=== PATIENT | male | born 1975 | race American Indian/Alaskan Native ===

== ENCOUNTER 2017-01-07 06:15 | Emergency (ER) | payer MEDICAID ==
[2017-01-07 07:37] LABS: Urine Drugs of Abuse Note Disclamer
[2017-01-07 08:09] LABS: Basophils % (Auto) 0.9 % (0.0-1.8); Eosinophils % (Auto) 0.5 % (0.0-4.3); Hematocrit 43.2 % (35.5-45.6); Hemoglobin 15.2 gm/dl (11.8-15.2); Mean Corpuscular HGB Conc 35 % (32-34); Mean Corpuscular Hemoglobin 32 pg (28-32); Mean Corpuscular Volume 92 fl (84-94); Platelet Count 263 K/mm3 (140-440); Red Cell Distribution Width 13.4 % (13.2-15.2); White Blood Count 9.4 K/mm3 (4.5-11.0)
[2017-01-07 08:21] LABS: Anion Gap 23 mmol/L; Blood Urea Nitrogen 14 mg/dL (9-20); Calcium 9.6 mg/dL (8.4-10.2); Carbon Dioxide 22 mmol/L (22-30); Chloride 98.6 mmol/L (98-107); Glucose 73 mg/dL (75-100); Potassium 3.9 mmol/L (3.6-5.0); Sodium 140 mmol/L (137-145)
[2017-01-07 08:23] LABS: Bilirubin,Urine NEG (Negative); Blood,Urine NEG (Negative); Ketones,Urine 20 mg/dL (Negative); Leukocyte Esterase,Urine NEG (Negative); Mucus,Urine 1+ /HPF; Nitrite,Urine NEG (Negative); Sperm,Urine FEW /HPF (NP)
--- NOTE | 2017-01-07 12:19 | Emergency Department Report ---
ED Psych HPI - General Chief Complaint: Psych Stated Complaint: MEDICAL CLEARANCE Time Seen by Provider: 01/07/17 11:08 Source: patient Mode of arrival: Ambulatory Limitations: No Limitations - History of Present Illness Initial Comments: 41 yo male with a past medical history of schizophrenia and hypertension presents to the hospital with homicidal suicidal ideation after possible HIV exposure. Patient was just released from [facility] [facility] ago. Patient states he lied stating that he was no longer suicidal or homicidal in order to get out of the program. Patient has been noncompliant with his medications since discharge because it makes him feel too sleepy and makes him constipated. Patient is taking Vistaril but he complains it makes him feel groggy. Yesterday patient ran into a man he had met previously and attempted to collect a $10 debt. This man offered sexual favors as re-payment for an additional payment. The patient and this man had unprotected oral and anal sex (receptive and penatrator) as well as sharing a needle for cocaine injection. Patient states he has not used cocaine at least 6 years and only did it because the man told him it will make sex better. The patient no longer prior to spend time in this male and kicked him out. They exchanged words and the man then told the patient that he has HIV. The patient also recalls that this man's girlfriend is a prostitute who is well-nourished to have HIV as well. Patient states she was angry, he knows he has poor corpus skills, he is having thoughts of homicidal ideation and self-harm. Previous episodes of suicidal attempts at self-harm in the past. Positive chronic auditory hallucinations. No physical complaints or pain reported. Patient has not been tested for HIV in greater than 1 year. - Related Data Home Medications Medication Instructions Recorded Confirmed Last Taken Aspirin 81 mg PO DAILY 01/07/17 01/07/17 Unknown Clonidine 0.2 mg PO BID 01/07/17 01/07/17 Unknown Flomax 0.2 mg PO BID 01/07/17 01/07/17 Unknown HCTZ 25 mg PO DAILY 01/07/17 01/07/17 Unknown Vistaril mg PO DAILY 01/07/17 Unknown Previous Rx's Medication Instructions Recorded Last Taken Type ZyPREXA 5 mg PO BID #60 01/09/17 Unknown Rx traZODone [Desyrel] 50 mg PO HS #30 tablet 01/09/17 Unknown Rx Allergies Allergy/AdvReac Type Severity Reaction Status Date / Time Penicillins Allergy Hives Verified 01/07/17 07:10 ED Review of Systems ROS: Stated complaint: MEDICAL CLEARANCE Other details as noted in HPI Comment: All other systems reviewed and negative Other: Constitutional: No fevers chills Eyes: No eye pain visual changes ENT: No ear pain or throat pain Neck: Denies pain Respiratory: Denies cough wheezing shortness of breath Cardiovascular: Denies chest pain, palpitations, syncope GI: Denies abdominal pain, nausea, vomiting, diarrhea : Denies dysuria Musculoskeletal: Denies back pain Skin: Denies rash, lesions, erythema Neurologic: Denies headache, numbness, weakness Psychiatric: as per hpi ED Past Medical Hx - Past Medical History Hx Hypertension: Yes Hx Psychiatric Treatment: Yes (Schizophrenia, Homicidal Ideation, Suicical Ideatioins) - Surgical History Past Surgical History?: No - Social History Smoking Status: Current Every Day Smoker Substance Use Type: Cocaine, Marijuana - Medications Home Medications: Home Medications Medication Instructions Recorded Confirmed Last Taken Type Aspirin 81 mg PO DAILY 01/07/17 01/07/17 Unknown History Clonidine 0.2 mg PO BID 01/07/17 01/07/17 Unknown History Flomax 0.2 mg PO BID 01/07/17 01/07/17 Unknown History HCTZ 25 mg PO DAILY 01/07/17 01/07/17 Unknown History Vistaril mg PO DAILY 01/07/17 Unknown History ZyPREXA 5 mg PO BID #60 01/09/17 Unknown Rx traZODone [Desyrel] 50 mg PO HS #30 tablet 01/09/17 Unknown Rx ED Physical Exam - General Limitations: No Limitations - Other Other exam information: General: No limitations, patient is alert in no acute distress Head exam: Atraumatic, normocephalic Eyes exam: Normal appearance ENT: Moist mucous membrane, normal oropharynx Neck exam: Normal inspection, full range of motion Respiratory exam: Clear to auscultation bilateral, no wheezes, rales, crackles Cardiovascular: Normal rate and rhythm, normal heart sounds Abdomen: Soft, nondistended, and nontender, with normal bowel sounds, no rebound, or guarding Extremity: Full range of motion normal inspection no deformity Back: Normal Inspection, full range of motion, no tenderness Neurologic: Alert, oriented x3, cranial nerves intact, no motor or sensory deficit Psychiatric: tearful at times, cooperative Skin: Old healed scars to the left forearm and abdomen from self-inflicted lacerations ED Course Vital Signs 01/07/17 01/07/17 01/07/17 06:48 11:31 19:59 Temperature 99 F 99.6 F 98 F Pulse Rate 87 112 H 82 Respiratory 18 18 18 Rate Blood Pressure 129/92 Blood Pressure 129/92 133/77 111/67 [Left] O2 Sat by Pulse 99 100 98 Oximetry 01/08/17 01/08/17 01/08/17 02:59 10:00 17:56 Temperature 98 F 99.4 F Pulse Rate 87 84 Respiratory 18 18 16 Rate Blood Pressure Blood Pressure 129/88 136/81 [Left] O2 Sat by Pulse 97 97 Oximetry 01/09/17 01/09/17 01/09/17 03:00 09:56 09:58 Temperature 98.6 F 99.0 F Pulse Rate 98 H 88 Respiratory 98 H 20 20 Rate Blood Pressure Blood Pressure 146/98 126/72 [Left] O2 Sat by Pulse 98 Oximetry - Reevaluation(s) Reevaluation #1: 01/07/17 Pt consented for HIV for baseline testing Reevaluation #2: 01/11/17 01:41 1013 was rescinded after psych review. pt was sent home ED Medical Decision Making - Lab Data Result diagrams: 01/07/17 07:34 01/07/17 07:34 Lab Results 01/07/17 01/07/17 01/07/17 Range/Units 07:24 07:24 07:34 WBC (4.5-11.0) K/mm3 RBC (3.65-5.03) M/mm3 Hgb (11.8-15.2) gm/dl Hct (35.5-45.6) % MCV (84-94) fl MCH (28-32) pg MCHC (32-34) % RDW (13.2-15.2) % Plt Count (140-440) K/mm3 Lymph % (Auto) (13.4-35.0) % [place] % (Auto) (0.0-7.3) % Eos % (Auto) (0.0-4.3) % Baso % (Auto) (0.0-1.8) % Lymph # (1.2-5.4) K/mm3 [place] # (0.0-0.8) K/mm3 Eos # (0.0-0.4) K/mm3 Baso # (0.0-0.1) K/mm3 Seg Neutrophils % (40.0-70.0) % Seg Neutrophils # (1.8-7.7) K/mm3 Sodium 140 (137-145) mmol/L Potassium 3.9 (3.6-5.0) mmol/L Chloride 98.6 (98-107) mmol/L Carbon Dioxide 22 (22-30) mmol/L Anion Gap 23 mmol/L BUN 14 (9-20) mg/dL Creatinine 0.7 L (0.8-1.5) mg/dL Estimated GFR > 60 ml/min BUN/Creatinine Ratio 20.00 % Glucose 73 L (75-100) mg/dL Calcium 9.6 (8.4-10.2) mg/dL Total Creatine Kinase (55-170) units/L Urine Color [place] (Yellow) Urine Turbidity Clear (Clear) Urine pH 5.0 (5.0-7.0) Ur Specific [place] 1.033 H (1.003-1.030) Urine Protein 100 mg/dl (Negative) mg/dL Urine Glucose (UA) Neg (Negative) mg/dL Urine Ketones 20 (Negative) mg/dL Urine Blood Neg (Negative) Urine Nitrite Neg (Negative) Urine Bilirubin Neg (Negative) Urine Urobilinogen 2.0 (<2.0) mg/dL Ur Leukocyte Esterase Neg (Negative) Urine WBC (Auto) 1.0 (0.0-6.0) /HPF Urine RBC (Auto) 1.0 (0.0-6.0) /HPF U Epithel Cells (Auto) < 1.0 (0-13.0) /HPF Urine Mucus 1+ /HPF Urine Sperm Few (RACE STARTER) /HPF Urine Opiates Screen Presumptive negative Urine Methadone Screen Presumptive negative Ur Barbiturates Screen Presumptive negative Ur Phencyclidine Scrn Presumptive negative Ur Amphetamines Screen Presumptive negative U Benzodiazepines Scrn Presumptive negative Urine Cocaine Screen Presumptive positive U Marijuana (THC) Screen Presumptive negative Drugs of Abuse Note Disclamer Plasma/Serum Alcohol (0-0.07) gm% HIV 1&2 Antibody Rapid (Non React) HIV P24 Antigen (Non React) 01/07/17 01/07/17 01/07/17 Range/Units 07:34 07:34 07:43 WBC 9.4 (4.5-11.0) K/mm3 RBC 4.70 (3.65-5.03) M/mm3 Hgb 15.2 (11.8-15.2) gm/dl Hct 43.2 (35.5-45.6) % MCV 92 (84-94) fl MCH 32 (28-32) pg MCHC 35 H (32-34) % RDW 13.4 (13.2-15.2) % Plt Count 263 (140-440) K/mm3 Lymph % (Auto) 14.2 (13.4-35.0) % [place] % (Auto) 9.8 H (0.0-7.3) % Eos % (Auto) 0.5 (0.0-4.3) % Baso % (Auto) 0.9 (0.0-1.8) % Lymph # 1.3 (1.2-5.4) K/mm3 [place] # 0.9 H (0.0-0.8) K/mm3 Eos # 0.0 (0.0-0.4) K/mm3 Baso # 0.1 (0.0-0.1) K/mm3 Seg Neutrophils % 74.6 H (40.0-70.0) % Seg Neutrophils # 7.0 (1.8-7.7) K/mm3 Sodium (137-145) mmol/L Potassium (3.6-5.0) mmol/L Chloride (98-107) mmol/L Carbon Dioxide (22-30) mmol/L Anion Gap mmol/L BUN (9-20) mg/dL Creatinine (0.8-1.5) mg/dL Estimated GFR ml/min BUN/Creatinine Ratio % Glucose (75-100) mg/dL Calcium (8.4-10.2) mg/dL Total Creatine Kinase (55-170) units/L Urine Color (Yellow) Urine Turbidity (Clear) Urine pH (5.0-7.0) Ur Specific [place] (1.003-1.030) Urine Protein (Negative) mg/dL Urine Glucose (UA) (Negative) mg/dL Urine Ketones (Negative) mg/dL Urine Blood (Negative) Urine Nitrite (Negative) Urine Bilirubin (Negative) Urine Urobilinogen (<2.0) mg/dL Ur Leukocyte Esterase (Negative) Urine WBC (Auto) (0.0-6.0) /HPF Urine RBC (Auto) (0.0-6.0) /HPF U Epithel Cells (Auto) (0-13.0) /HPF Urine Mucus /HPF Urine Sperm (RACE STARTER) /HPF Urine Opiates Screen Urine Methadone Screen Ur Barbiturates Screen Ur Phencyclidine Scrn Ur Amphetamines Screen U Benzodiazepines Scrn Urine Cocaine Screen U Marijuana (THC) Screen Drugs of Abuse Note Plasma/Serum Alcohol < 0.01 (0-0.07) gm% HIV 1&2 Antibody Rapid Non react (Non React) HIV P24 Antigen Non react (Non React) 01/07/17 Range/Units 11:34 WBC (4.5-11.0) K/mm3 RBC (3.65-5.03) M/mm3 Hgb (11.8-15.2) gm/dl Hct (35.5-45.6) % MCV (84-94) fl MCH (28-32) pg MCHC (32-34) % RDW (13.2-15.2) % Plt Count (140-440) K/mm3 Lymph % (Auto) (13.4-35.0) % [place] % (Auto) (0.0-7.3) % Eos % (Auto) (0.0-4.3) % Baso % (Auto) (0.0-1.8) % Lymph # (1.2-5.4) K/mm3 [place] # (0.0-0.8) K/mm3 Eos # (0.0-0.4) K/mm3 Baso # (0.0-0.1) K/mm3 Seg Neutrophils % (40.0-70.0) % Seg Neutrophils # (1.8-7.7) K/mm3 Sodium (137-145) mmol/L Potassium (3.6-5.0) mmol/L Chloride (98-107) mmol/L Carbon Dioxide (22-30) mmol/L Anion Gap mmol/L BUN (9-20) mg/dL Creatinine (0.8-1.5) mg/dL Estimated GFR ml/min BUN/Creatinine Ratio % Glucose (75-100) mg/dL Calcium (8.4-10.2) mg/dL Total Creatine Kinase 698 H (55-170) units/L Urine Color (Yellow) Urine Turbidity (Clear) Urine pH (5.0-7.0) Ur Specific [place] (1.003-1.030) Urine Protein (Negative) mg/dL Urine Glucose (UA) (Negative) mg/dL Urine Ketones (Negative) mg/dL Urine Blood (Negative) Urine Nitrite (Negative) Urine Bilirubin (Negative) Urine Urobilinogen (<2.0) mg/dL Ur Leukocyte Esterase (Negative) Urine WBC (Auto) (0.0-6.0) /HPF Urine RBC (Auto) (0.0-6.0) /HPF U Epithel Cells (Auto) (0-13.0) /HPF Urine Mucus /HPF Urine Sperm (RACE STARTER) /HPF Urine Opiates Screen Urine Methadone Screen Ur Barbiturates Screen Ur Phencyclidine Scrn Ur Amphetamines Screen U Benzodiazepines Scrn Urine Cocaine Screen U Marijuana (THC) Screen Drugs of Abuse Note Plasma/Serum Alcohol (0-0.07) gm% HIV 1&2 Antibody Rapid (Non React) HIV P24 Antigen (Non React) - Medical Decision Making patient is HIV test is negative. Patient initiated on post exposure prophylaxis given high risk of HIV transmission given recent high risk activities. 1013 and Transfer forms signed. Patient is medically cleared for psychiatric admission. Awaiting psych consult for recommendations regarding psych medications. - Differential Diagnosis suicidal, homicidal, depression, schizophrenia, substance abuse Critical Care Time: No Critical care attestation.: If time is entered above; I have spent that time in minutes in the direct care of this critically ill patient, excluding procedure time. ED Disposition Clinical Impression: Schizophrenia, HIV exposure, Homicidal ideation, Suicidal ideation, Medical clearance for psychiatric admission, Cocaine abuse Disposition: [id number]/[id number] PSY HOSP/PSY UNIT Is pt being admited?: No Does the pt Need Aspirin: No Condition: Stable Instructions: Schizophrenia (ED), Suicide Prevention for Adults (ED) Additional Instructions: Follow-up as per mental health provider. Prescriptions: traZODone [Desyrel] 50 mg PO HS #30 tablet ZyPREXA 5 mg PO BID #60 Referrals: PRIMARY CARE, [Primary Care Provider] - 3-5 Days
[2017-01-07] MEDS ORDERED: ATIVAN PO ONE (12:20)
[2017-01-07 12:50] LABS: HIV-1 Antigen p24 Non React (Non React); HIVR-1/2 Ab Non React (Non React)
[2017-01-07] MEDS ORDERED: ATIVAN ONE (15:02)
[2017-01-07] MEDS: ISENTRESS PO SCH (23:42)
[2017-01-08] MEDS ORDERED: EMTRIVA 200 MG, VIREAD 300 MG PO SCH (10:00)
[2017-01-08] MEDS: EMTRIVA PO SCH (11:18)
[2017-01-08] MEDS: VIREAD PO SCH (11:18)
[2017-01-08] MEDS: ISENTRESS PO SCH ×2 (11:18→22:25)
[2017-01-08] MEDS ORDERED: CATAPRES PO SCH (22:00)
[2017-01-09 09:58] VITALS: BP 126/72
[2017-01-09] MEDS: EMTRIVA PO SCH (12:57)
[2017-01-09] MEDS: VIREAD PO SCH (12:57)
[2017-01-09] MEDS: ISENTRESS PO SCH (12:57)
--- NOTE | 2017-01-09 14:20 | Consultation ---
History of Present Illness - Reason for Consult Consult date: 01/09/17 Reason for consult: Mental Health Evaluation Requesting physician: RENUKA GAFFNEY - Chief Complaint Chief complaint: "I am okay" - History of Present Psychiatric Illness 41 yo male with a past medical history of bipolar and hypertension presents to the hospital with homicidal/suicidal ideation after possible HIV exposure. Today patient is calm and cooperative during the assessment. He stated that he was "pissed and stressed" when he found out a jeremy he had sex with may have exposed him to HIV. He stated that this jeremy owed him some money, so the jeremy decided to have sex with the patient to repay the debt. He stated that he used cocaine to "intensify his orgasm." Patient positive for cocaine. He stated that he haven't used cocaine in years. He stated that he was just "talking" if he made a statement about being suicidal/homicidal. He stated that he plan to move back to [place] to be with family once discharged. He denies SI/HI', AVH's, and depression. He denies a poor appetite and sleep disturbances. He denies excessive alcohol consumption (etoh) Medications and Allergies Allergies Allergy/AdvReac Type Severity Reaction Status Date / Time Penicillins Allergy Hives Verified 01/07/17 07:10 Home Medications Medication Instructions Recorded Confirmed Last Taken Type Aspirin 81 mg PO DAILY 01/07/17 01/07/17 Unknown History Clonidine 0.2 mg PO BID 01/07/17 01/07/17 Unknown History Flomax 0.2 mg PO BID 01/07/17 01/07/17 Unknown History HCTZ 25 mg PO DAILY 01/07/17 01/07/17 Unknown History Vistaril mg PO DAILY 01/07/17 Unknown History ZyPREXA mg PO DAILY 01/07/17 Unknown History traZODone [Desyrel] 50 mg PO HS 01/07/17 01/07/17 Unknown History Active Meds: Active Medications Clonidine HCl (Catapres) 0.1 mg PO QHS [facility] Last Admin: 01/08/17 22:25 Dose: 0.1 mg Emtricitabine (Emtriva) 200 mg PO QDAY [facility] Last Admin: 01/09/17 12:57 Dose: 200 mg Raltegravir (Isentress) 400 mg PO BID [facility] Last Admin: 01/09/17 12:57 Dose: 400 mg Tenofovir Disoproxil Fumarate (Viread) 300 mg PO QDAY [facility] Last Admin: 01/09/17 12:57 Dose: 300 mg Past psychiatric history - Past Medical History Past Medical History: hypertension Past Surgical History: No surgical history - past Psychiatric treatment and history Psych: Bipolar psychiatric treatment history: Multiple inpatient psy settings. Denies a fam psy hx. - Social History Social history: Lives alone Mental Status Exam - Vital signs Last Vital Signs Temp 99.0 F 01/09/17 09:56 Pulse 88 01/09/17 09:56 Resp 20 01/09/17 09:58 BP 126/72 01/09/17 09:56 Pulse Ox 98 01/09/17 09:58 - Exam Narrative exam: ROS: (-) depression, (-) psychosis MSE: Appearance: calm, cooperative Behavior: regular eye contact Speech: regular rate and tone Mood: "okay" Affect: congruent to mood Thought Process: linear Thought Content: denies SI/HI's and AVH's Motor Activity: ambulatory Cognition: A/Ox 3 Insight: fair Judgment: fair Results Result Diagrams: 01/07/17 07:34 01/07/17 07:34 All other labs normal. Assessment and Plan Assessment and plan: Impression: Historical Dx: Bipolar DO. Substance Use DO (cocaine). Today patient is calm and cooperative during at the assessment. Patient is no threat to self or others. Positive for cocaine. Recommendation/Plan: Patient can follow up with [facility] for outpatient psy services. Patient do not need any prescriptions.
== END 2017-01-09 19:08 ==
LOC: ED 06:15 → EEVIPCON 06:15 → ED 01-09 19:08
DX: F20.9 Schizophrenia, unspecified (principal); F14.10 Cocaine abuse, uncomplicated; I10 Essential (primary) hypertension; F17.210 Nicotine dependence, cigarettes, uncomplicated; F12.10 Cannabis abuse, uncomplicated; Z79.82 Long term (current) use of aspirin; Z88.0 Allergy status to penicillin
CPT/HCPCS: 36415; 80048; 80307; 81001; 82550; 85025; 87806; 99284; G0480; 80320

== ENCOUNTER 2018-01-05 15:21 | Emergency (ER) | payer MEDICAID ==
[2018-01-05 15:35] VITALS: BP 124/75
== END 2018-01-05 17:47 | disposition left against medical advice (07) ==
LOC: ED 15:21
DX: R35.0 Frequency of micturition (principal); Z53.21 Procedure and treatment not carried out due to patient leaving prior to being seen by health care provider

== ENCOUNTER 2018-01-20 01:38 | Emergency (ER) | payer MEDICAID ==
[2018-01-20 04:35] VITALS: BP 140/74
[2018-01-20 05:23] LABS: Bilirubin,Urine NEG (Negative); Blood,Urine NEG (Negative); Calcium Oxalate Crystals,Urine 1+; Color,Urine Yellow (Yellow); Mucus,Urine FEW /HPF; WBC,Urine < 1.0 /HPF (0.0-6.0)
== END 2018-01-20 10:35 | disposition left against medical advice (07) ==
LOC: ED 01:38
DX: R30.0 Dysuria (principal); Z53.21 Procedure and treatment not carried out due to patient leaving prior to being seen by health care provider
CPT/HCPCS: 81001; 82962

== ENCOUNTER → 2018-01-24 00:47 | Emergency (ER) | payer MEDICAID ==
[2018-01-24 00:55] VITALS: BP 136/78
== END | disposition left against medical advice (07) ==
LOC: ED 00:47
DX: Z76.0 Encounter for issue of repeat prescription (principal); Z53.21 Procedure and treatment not carried out due to patient leaving prior to being seen by health care provider

== ENCOUNTER 2018-01-27 01:27 | Emergency (ER) | payer MEDICAID ==
[2018-01-27 02:22] VITALS: BP 130/93
[2018-01-27 05:08] LABS: Bilirubin,Urine NEG (Negative); Blood,Urine NEG (Negative); Color,Urine Yellow (Yellow); Mucus,Urine FEW /HPF; Protein,Urine <15 mg/dL mg/dL (Negative); RBC,Urine < 1.0 /HPF (0.0-6.0); WBC,Urine < 1.0 /HPF (0.0-6.0)
== END 2018-01-27 06:35 | disposition left against medical advice (07) ==
LOC: ED 01:27
DX: R30.0 Dysuria (principal); Z53.21 Procedure and treatment not carried out due to patient leaving prior to being seen by health care provider
CPT/HCPCS: 81001

== ENCOUNTER 2018-02-03 02:10 | Emergency (ER) | payer MEDICAID, MEDICARE ==
[2018-02-03 04:49] VITALS: BP 142/93
[2018-02-03 05:43] LABS: Bilirubin,Urine NEG (Negative); Blood,Urine NEG (Negative); Color,Urine Yellow (Yellow); Mucus,Urine 1+ /HPF
== END 2018-02-03 08:13 ==
LOC: ED 02:10
DX: R30.0 Dysuria (principal); Z53.21 Procedure and treatment not carried out due to patient leaving prior to being seen by health care provider
CPT/HCPCS: 81001

== ENCOUNTER 2018-02-06 01:50 | Emergency (ER) | payer MEDICAID | END 2018-02-06 02:15 | disposition left against medical advice (07) | LOC: ED 01:50 | DX: R30.0 Dysuria (principal); Z45.321 Encounter for adjustment and management of cochlear device ==

== ENCOUNTER 2018-06-06 17:08 | Emergency (ER) | payer MEDICARE ==
[2018-06-06 17:33] VITALS: BP 97/59
[2018-06-06] MEDS ORDERED: NACL 0.9% 1000 ML 1,000 ML IV ONE (17:33)
[2018-06-06 18:17] LABS: Bilirubin,Urine NEG (Negative); Blood,Urine NEG (Negative); Color,Urine Amber (Yellow); Hyaline Casts,Urine 10 /LPF; Mucus,Urine 2+ /HPF; Urobilinogen,Urine < 2.0 mg/dL (<2.0)
[2018-06-06 18:33] LABS: Basophils % (Auto) 0.8 % (0.0-1.8); Eosinophils # (Auto) 0.2 K/mm3 (0.0-0.4); Eosinophils % (Auto) 3.2 % (0.0-4.3); Hematocrit 45.6 % (35.5-45.6); Hemoglobin 15.6 gm/dl (11.8-15.2); Lymphocytes % (Auto) 21.2 % (13.4-35.0); Mean Corpuscular HGB Conc 34 % (32-34); Mean Corpuscular Volume 96 fl (84-94); Monocytes # (Auto) 0.4 K/mm3 (0.0-0.8); Monocytes % (Auto) 7.3 % (0.0-7.3); Platelet Count 248 K/mm3 (140-440); Red Blood Count 4.76 M/mm3 (3.65-5.03); Red Cell Distribution Width 12.6 % (13.2-15.2)
[2018-06-06 19:37] LABS: Alanine Aminotransferase 12 units/L (7-56); Albumin 3.7 g/dL (3.9-5); BUN/Creatinine Ratio 6; Blood Urea Nitrogen 5 mg/dL (9-20); Calcium 8.7 mg/dL (8.4-10.2); Hemolysis Index 13
--- NOTE | 2018-06-06 20:15 | Emergency Department Report ---
ED Male HPI - General Chief complaint: Abdominal Pain Stated complaint: DIZZY Time Seen by Provider: 06/06/18 19:56 Source: patient Mode of arrival: Stretcher Limitations: No Limitations - History of Present Illness Initial comments: 42-year-old -Japanese male with a past medical history of schizophrenia, homicidal ideation and suicidal ideation with hypertension comes in via EMS for complaint of urinary issues and poor appetite. Patient states that his urine is cloudy and milky and has a strong odor. Patient states that he's been dizzy today while at work in he had dropped a wilson of chicken while working at [employer]. Patient does admit that he smokes marijuana all day every day. Patient states that he's lost his appetite and recently lost 20 pounds. Patient states that he lost 20 pounds in the last year. Patient's blood pressure medicine is clonidine 0.2 mg twice a day and hydrochlorothiazide 25 mg daily. Patient blood pressure upon arrival in triage was 97/59 with a heart rate of 60. Patient denies any homicidal suicidal ideation today. -: This afternoon Improves with: none Worsens with: none denies other symptoms - Related Data Home Medications Medication Instructions Recorded Confirmed Last Taken Aspirin 81 mg PO DAILY 01/07/17 01/07/17 Unknown Vistaril mg PO DAILY 01/07/17 Unknown Previous Rx's Medication Instructions Recorded Last Taken Type ZyPREXA 5 mg PO BID #60 01/09/17 Unknown Rx traZODone [Desyrel] 50 mg PO HS #30 tablet 01/09/17 Unknown Rx Allergies Allergy/AdvReac Type Severity Reaction Status Date / Time Penicillins Allergy Hives Verified 01/07/17 07:10 ED Review of Systems ROS: Stated complaint: DIZZY Other details as noted in HPI Comment: All other systems reviewed and negative ED Past Medical Hx - Past Medical History Previous Medical History?: Yes Hx Hypertension: Yes Hx Psychiatric Treatment: Yes (Schizophrenia, Homicidal Ideation, Suicical Ideatioins) - Surgical History Past Surgical History?: No - Social History Smoking Status: Current Every Day Smoker Substance Use Type: Marijuana - Medications Home Medications: Home Medications Medication Instructions Recorded Confirmed Last Taken Type Aspirin 81 mg PO DAILY 01/07/17 01/07/17 Unknown History Vistaril mg PO DAILY 01/07/17 Unknown History ZyPREXA 5 mg PO BID #60 01/09/17 Unknown Rx traZODone [Desyrel] 50 mg PO HS #30 tablet 01/09/17 Unknown Rx ED Physical Exam - General Limitations: No Limitations General appearance: alert, in no apparent distress - Head Head exam: Present: atraumatic, normocephalic - Eye Eye exam: Present: EOMI - ENT ENT exam: Present: mucous membranes moist - Neck Neck exam: Present: normal inspection - Respiratory Respiratory exam: Present: normal lung sounds bilaterally. Absent: respiratory distress - Cardiovascular Cardiovascular Exam: Present: regular rate, normal rhythm. Absent: systolic murmur, diastolic murmur, rubs, gallop - GI/Abdominal GI/Abdominal exam: Present: soft, normal bowel sounds. Absent: distended, tenderness - Extremities Exam Extremities exam: Present: normal inspection ED Course Vital Signs 06/06/18 17:28 Temperature 98.7 F Pulse Rate 60 Respiratory 18 Rate Blood Pressure 97/59 O2 Sat by Pulse 97 Oximetry ED Medical Decision Making - Lab Data Result diagrams: 06/06/18 18:10 06/06/18 18:10 Laboratory Tests 06/06/18 06/06/18 06/06/18 17:40 18:10 18:10 WBC 4.9 RBC 4.76 Hgb 15.6 H Hct 45.6 MCV 96 H MCH 33 H MCHC 34 RDW 12.6 L Plt Count 248 Lymph % (Auto) 21.2 [place] % (Auto) 7.3 Eos % (Auto) 3.2 Baso % (Auto) 0.8 Lymph # 1.0 L [place] # 0.4 Eos # 0.2 Baso # 0.0 Seg Neutrophils % 67.5 Seg Neutrophils # 3.3 Sodium 143 Potassium 4.3 Chloride 105.3 Carbon Dioxide 28 Anion Gap 14 BUN 5 L Creatinine 0.8 Estimated GFR > 60 BUN/Creatinine Ratio 6 Glucose 75 Calcium 8.7 Total Bilirubin 0.20 AST 18 ALT 12 Alkaline Phosphatase 43 Total Protein 5.6 L Albumin 3.7 L Albumin/Globulin Ratio 1.9 Urine Color [place] Urine Turbidity Clear Urine pH 5.0 Ur Specific [place] 1.024 Urine Protein 30 mg/dl Urine Glucose (UA) Neg Urine Ketones Tr Urine Blood Neg Urine Nitrite Neg Urine Bilirubin Neg Urine Urobilinogen < 2.0 Ur Leukocyte Esterase Neg Urine WBC (Auto) 1.0 Urine RBC (Auto) 1.0 U Epithel Cells (Auto) < 1.0 Hyaline Casts 10 Urine Mucus 2+ - Medical Decision Making Patient has been evaluated by this provider in fast track. Patient's urine is positive for proteinuria will refer to urology Patient comes in with blood pressure 97/59 will discontinue his clonidine and hydrochlorothiazide and referral to primary care provider. Critical care attestation.: If time is entered above; I have spent that time in minutes in the direct care of this critically ill patient, excluding procedure time. ED Disposition Clinical Impression: Hypotensive episode Proteinuria Qualifiers: Proteinuria type: unspecified Qualified Code(s): R80.9 - Proteinuria, unspecified Disposition: TO HOME OR SELFCARE Is pt being admited?: No Does the pt Need Aspirin: No Condition: Stable Instructions: Hypotension (ED) Additional Instructions: Please discontinue taking clonidine and hydrochlorothiazide. It's very important for you to follow up with a primary care provider as well as a urologist. I have listed both of their information below for your convenience. Follow-up in the next 3-5 days. Referrals: VIRI FLORES MD [Primary Care Provider] - 3-5 Days ABRAM PRATT MD [Staff Physician] - 3-5 Days SHANTEL WEINER MD [Staff Physician] - 3-5 Days Forms: Work/School Release Form(ED)
== END 2018-06-06 21:01 | disposition home or self-care (01) ==
LOC: ED 17:08
DX: R80.9 Proteinuria, unspecified (principal); I95.9 Hypotension, unspecified; I10 Essential (primary) hypertension; F20.9 Schizophrenia, unspecified; F17.200 Nicotine dependence, unspecified, uncomplicated; F12.10 Cannabis abuse, uncomplicated; Z88.0 Allergy status to penicillin
CPT/HCPCS: 36415; 80053; 81001; 85025

== ENCOUNTER 2018-06-13 18:32 | Emergency (ER) | payer MEDICARE ==
--- NOTE | 2018-06-13 18:53 | Emergency Department Report ---
Blank Doc - Documentation Documentation: 42 y.o. male presents with chest pressure. States it feel like a elephant is sitting on his chest. Admits to productive cough with reveles mucous. Reports heavy sensation that is 8/10 o pain scale and non-radiating. cc cough and chest pressure Labs, EKG, and CXR ordered Fast Track for evaluation
[2018-06-13 19:31] LABS: Mean Corpuscular HGB Conc 36 % (32-34); Mean Corpuscular Volume 92 fl (84-94); Platelet Count 205 K/mm3 (140-440); Red Blood Count 5.12 M/mm3 (3.65-5.03); Red Cell Distribution Width 12.2 % (13.2-15.2)
[2018-06-13 19:32] LABS: Hematocrit 47.2 % (35.5-45.6); Hemoglobin 16.9 gm/dl (11.8-15.2)
[2018-06-13 19:54] LABS: BUN/Creatinine Ratio 8; Blood Urea Nitrogen 6 mg/dL (9-20); Calcium 8.5 mg/dL (8.4-10.2); Hemolysis Index 34
--- NOTE | 2018-06-13 20:03 | XRay Report ---
FINAL REPORT PROCEDURE: Chest. TECHNIQUE: PA and lateral views. HISTORY: Cough and chest pain. COMPARISON: No prior studies are available for comparison. FINDINGS: The heart and mediastinum appear normal. The lungs are clear and well expanded. There are no pleural effusions. The soft tissues and regional skeleton are unremarkable. IMPRESSION: Normal study.
[2018-06-13 20:12] LABS: Basophils % (Manual) 0 % (0.0-1.8); Total Cells Counted 100
[2018-06-13 20:13] LABS: Anisocytosis Few; Ovalocytes Few; Poikilocytosis Few
--- NOTE | 2018-06-13 22:13 | Emergency Department Report ---
Minor Respiratory - HPI Chief Complaint: Chest Pain Stated Complaint: SOB/CHEST PAIN Time Seen by Provider: 06/13/18 18:48 Duration: 2 Days Pain Location: Chest Severity: moderate Minor Respiratory: Yes Able to Tolerate Fluids, Yes Cough, Yes Chest Pain, Yes Fever, No Rhinorrhea, No Sore Throat, No Ear Pain, No Sick Contacts, No Hemoptysis, No Shortness of Breath Other History: Mr. Orourke is a very pleasant healthy 42 -year-old male with histor y of HTN, schizophrnia, BPH who presents with chest pressure, chest congestion and productive cough chills and sweats. He stated that the mucus appeared yellow and marmolejo. Positive history of tobacco use. Mild wheezing. He is concerned for pneumonia. Currently chest pain-free. Chest pain mostly occurs at rest mostly with cough. Denies shortness of breath. ED Review of Systems ROS: Stated complaint: SOB/CHEST PAIN Other details as noted in HPI Comment: All other systems reviewed and negative Constitutional: chills, fever, malaise Respiratory: cough, shortness of breath, wheezing Cardiovascular: chest pain ED Past Medical Hx - Past Medical History Previous Medical History?: Yes Hx Hypertension: Yes Hx Psychiatric Treatment: Yes (Schizophrenia, Homicidal Ideation, Suicical Ideatioins) - Surgical History Past Surgical History?: No - Social History Smoking Status: Current Every Day Smoker Substance Use Type: Marijuana - Medications Home Medications: Home Medications Medication Instructions Recorded Confirmed Last Taken Type Aspirin 81 mg PO DAILY 01/07/17 01/07/17 Unknown History Vistaril mg PO DAILY 01/07/17 Unknown History ZyPREXA 5 mg PO BID #60 01/09/17 Unknown Rx traZODone [Desyrel] 50 mg PO HS #30 tablet 01/09/17 Unknown Rx Doxycycline Hyclate [Doxycycline 100 mg PO Q12HR 7 Days #14 tab 06/13/18 Unknown Rx Hyclate TAB] Minor Respiratory Exam - Exam General: Vital signs noted. No distress. Alert and acting appropriately. General: Well-appearing, no acute distress HEENT: Normocephalic atraumatic anicteric sclera Nose: no rhinorrhea Oropharynx: Clear mucous membranes no lesions Neck: supple, no meningismus Chest: Clear to auscultation bilaterally no rales rhonchi no wheezes Cardiac: Regular rate and rhythm no murmurs no rubs no gallops Abdomen: Soft nontender nondistended positive bowel sounds no guarding Extremities: No cyanosis no clubbing no edema Neuro: Moves all extremities 4, no gross deficits Psychiatric: Alert and oriented 4 normal affect normal judgment normal insight HEENT: Yes Moist Mucous Membranes, No Pharyngeal Erythema, No Pharyngeal Exudates, No Rhinorrhea, No Conjuctival Injection, No Frontal Tenderness, No Ma xillary Tenderness Neck: Yes Supple, No Adenopathy Lungs: Yes Good Air Exchange, No Wheezes, No Ronchi, No Stridor, No Cough, No Labored Respirations, No Retractions, No Use of Accessory Muscles, No Other Abnormal Lung Sounds Heart: Yes Regular, No Murmur Abdomen: Yes Normal Bowel Sounds, No Tenderness, No Peritoneal Signs Skin: No Rash, No Edema Neurologic: Alert and oriented, no deficits. Musculoskeletal: Unremarkable. ED Course Vital Signs 06/13/18 06/13/18 06/13/18 18:40 18:48 21:16 Temperature 98.7 F 98.7 F Pulse Rate 121 H 121 H 99 H Respiratory 18 18 17 Rate Blood Pressure 114/90 Blood Pressure 114/90 [Left] O2 Sat by Pulse 96 96 99 Oximetry ED Medical Decision Making - Lab Data Result diagrams: 06/13/18 19:03 06/13/18 19:03 Laboratory Results - last 24 hr 06/13/18 06/13/18 19:03 19:03 WBC 4.0 L RBC 5.12 H Hgb 16.9 H Hct 47.2 H MCV 92 MCH 33 H MCHC 36 H RDW 12.2 L Plt Count 205 [place] % (Auto) Filler Shredder Helper Add Manual Diff Complete Total Counted 100 Seg Neuts % (Manual) 51.0 Band Neutrophils % 0 Lymphocytes % (Manual) 32.0 Reactive Lymphs % (Man) 0 Monocytes % (Manual) 15.0 H Eosinophils % (Manual) 2.0 Basophils % (Manual) 0 Metamyelocytes % 0 Myelocytes % 0 Promyelocytes % 0 Blast Cells % 0 Nucleated RBC % Not Reportable Seg Neutrophils # Man 2.0 Band Neutrophils # 0.0 Lymphocytes # (Manual) 1.3 Abs React Lymphs (Man) 0.0 Monocytes # (Manual) 0.6 Eosinophils # (Manual) 0.1 Basophils # (Manual) 0.0 Metamyelocytes # 0.0 Myelocytes # 0.0 Promyelocytes # 0.0 Blast Cells # 0.0 WBC Morphology Not Reportable Hypersegmented Neuts Not Reportable Hyposegmented Neuts Not Reportable Hypogranular Neuts Not Reportable Smudge Cells Not Reportable Toxic Granulation Not Reportable Toxic Vacuolation Not Reportable Dohle Bodies Not Reportable Pelger-Huet Anomaly Not Reportable Jose Rods Not Reportable Platelet Estimate Appears normal Clumped Platelets Not Reportable Plt Clumps, EDTA Not Reportable Large Platelets Not Reportable Giant Platelets Not Reportable Platelet Satelliting Not Reportable Plt Morphology Comment Not Reportable RBC Morphology Not Reportable Dimorphic RBCs Not Reportable Polychromasia Not Reportable Hypochromasia Not Reportable Poikilocytosis Few Anisocytosis Few Microcytosis Not Reportable Macrocytosis Not Reportable Spherocytes Not Reportable Pappenheimer Bodies Not Reportable Sickle Cells Not Reportable Target Cells Not Reportable Tear Drop Cells Not Reportable Ovalocytes Few Helmet Cells Not Reportable [place] Bodies Not Reportable [place] Rings Not Reportable [place] Cells Not Reportable Bite Cells Not Reportable Crenated Cell Not Reportable Elliptocytes Not Reportable Acanthocytes (Spur) Not Reportable Rouleaux Not Reportable Hemoglobin C Crystals Not Reportable Schistocytes Not Reportable Malaria parasites Not Reportable [place] Bodies Not Reportable Hem Pathologist Commnt No Sodium 136 L Potassium 3.7 Chloride 99.1 Carbon Dioxide 24 Anion Gap 17 BUN 6 L Creatinine 0.8 Estimated GFR > 60 BUN/Creatinine Ratio 8 Glucose 84 Calcium 8.5 Troponin T < 0.010 - EKG Data 06/13/18 22:10 EKG obtained 1846 Rate 85 beats a minute normal sinus rhythm normal axis normal intervals no ST-T signs of ischemia - Radiology Data Radiology results: report reviewed Chest x-ray: No acute process - Medical Decision Making Mr. Orourke presents with signs and symptoms of acute bronchitis. With history of tobacco abuse, antibiotics are indicated. No indication of acute coronary syndrome, pericarditis, pneumonia or pulmonary embolism during this ED encounter. Prescription for doxycycline provided. Critical care attestation.: If time is entered above; I have spent that time in minutes in the direct care of this critically ill patient, excluding procedure time. ED Disposition Clinical Impression: Acute bronchitis Disposition: DC-01 TO HOME OR SELFCARE Is pt being admited?: No Does the pt Need Aspirin: No Condition: Stable Instructions: Acute Bronchitis (ED) Prescriptions: Doxycycline Hyclate [Doxycycline Hyclate TAB] 100 mg PO Q12HR 7 Days #14 tab Referrals: GISSELLE BEE DO [Primary Care Provider] - 3-5 Days
[2018-06-13 22:14] VITALS: BP 123/86
== END 2018-06-13 22:39 | disposition home or self-care (01) ==
LOC: ED 18:32
DX: J20.9 Acute bronchitis, unspecified (principal); I10 Essential (primary) hypertension; F17.200 Nicotine dependence, unspecified, uncomplicated; F12.90 Cannabis use, unspecified, uncomplicated; Z79.82 Long term (current) use of aspirin; Z88.0 Allergy status to penicillin
CPT/HCPCS: 36415; 71046; 80048; 84484; 85007; 85025; 93005; 93010; 99284

== ENCOUNTER 2018-06-22 01:59 | Emergency (ER) | payer MEDICARE ==
[2018-06-22 02:20] VITALS: BP 137/94
== END 2018-06-22 05:20 | disposition left against medical advice (07) ==
LOC: ED 01:59
DX: M79.676 Pain in unspecified toe(s) (principal); Z53.21 Procedure and treatment not carried out due to patient leaving prior to being seen by health care provider

== ENCOUNTER 2018-07-26 01:12 | Emergency (ER) | payer MEDICARE, MEDICAID ==
[2018-07-26 01:18] VITALS: BP 125/84
== END 2018-07-26 05:00 | disposition left against medical advice (07) ==
LOC: ED 01:12
DX: R05 Cough (principal); R07.0 Pain in throat; Z53.21 Procedure and treatment not carried out due to patient leaving prior to being seen by health care provider

== ENCOUNTER 2018-07-28 23:50 | Emergency (ER) | payer MEDICARE, MEDICAID ==
[2018-07-29] MEDS ORDERED: FLEXERIL PO ONE (02:08)
[2018-07-29] MEDS ORDERED: IBUPROFEN PO ONE (02:08)
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
[2018-07-29 07:35] VITALS: BP 138/84
== END 2018-07-29 06:00 | disposition home or self-care (01) ==
LOC: ED 23:50
DX: M25.511 Pain in right shoulder (principal); I10 Essential (primary) hypertension; F17.200 Nicotine dependence, unspecified, uncomplicated; Z88.0 Allergy status to penicillin; Z79.82 Long term (current) use of aspirin
CPT/HCPCS: 99284

== ENCOUNTER 2018-11-09 00:35 | Emergency (ER) | payer MEDICARE ==
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
[2018-11-09 04:00] VITALS: BP 118/80
== END 2018-11-09 03:59 | disposition home or self-care (01) ==
LOC: ED 00:35
DX: S49.91XS Unspecified injury of right shoulder and upper arm, sequela (principal); I10 Essential (primary) hypertension; F20.9 Schizophrenia, unspecified; F17.200 Nicotine dependence, unspecified, uncomplicated; F12.10 Cannabis abuse, uncomplicated; Z79.899 Other long term (current) drug therapy; Z88.0 Allergy status to penicillin; Z76.0 Encounter for issue of repeat prescription; V49.9XXS Car occupant (driver) (passenger) injured in unspecified traffic accident, sequela
CPT/HCPCS: 99282

== ENCOUNTER 2018-11-16 01:40 | Emergency (ER) | payer MEDICARE ==
[2018-11-16 01:51] VITALS: BP 137/78
== END 2018-11-16 07:36 | disposition left against medical advice (07) ==
LOC: ED 01:40
DX: Z00.8 Encounter for other general examination (principal); Z53.21 Procedure and treatment not carried out due to patient leaving prior to being seen by health care provider

== ENCOUNTER 2020-07-03 23:57 | Emergency (ER) | payer MEDICARE ==
[2020-07-04 02:12] LABS: Bilirubin,Urine NEG (Negative); Blood,Urine NEG (Negative); Color,Urine Colorless (Yellow); Protein,Urine <15 mg/dL mg/dL (Negative); Urobilinogen,Urine < 2.0 mg/dL (<2.0); WBC,Urine < 1.0 /HPF (0.0-6.0)
[2020-07-04 02:23] LABS: Alanine Aminotransferase 16 units/L (7-56); Albumin 4.1 g/dL (3.9-5); BUN/Creatinine Ratio 13; Blood Urea Nitrogen 10 mg/dL (9-20); Calcium 8.8 mg/dL (8.4-10.2); Hemolysis Index 2
[2020-07-04 02:32] LABS: Basophils # (Auto) 0.1 K/mm3 (0.0-0.1); Basophils % (Auto) 1.2 % (0.0-1.8); Eosinophils # (Auto) 0.4 K/mm3 (0.0-0.4); Eosinophils % (Auto) 8.1 % (0.0-4.3); Hematocrit 38.8 % (35.5-45.6); Hemoglobin 13.6 gm/dl (11.8-15.2); Lymphocytes # (Auto) 1.5 K/mm3 (1.2-5.4); Lymphocytes % (Auto) 33.2 % (13.4-35.0); Mean Corpuscular HGB Conc 35 % (32-34); Mean Corpuscular Volume 96 fl (84-94); Monocytes # (Auto) 0.5 K/mm3 (0.0-0.8); Monocytes % (Auto) 11.6 % (0.0-7.3); Platelet Count 241 K/mm3 (140-440); Red Blood Count 4.03 M/mm3 (3.65-5.03); Red Cell Distribution Width 12.2 % (13.2-15.2)
--- NOTE | 2020-07-04 03:09 | Emergency Department Report ---
ED Male HPI - General Chief complaint: Urogenital-Male Stated complaint: ABDOMINAL PRESSURE/TESTICULAR PRESSURE Source: patient Mode of arrival: Ambulatory Limitations: No Limitations - History of Present Illness Initial comments: Patient is a 44-year-old -[place] male with a history of schizophrenia, anxiety and depression who presents to the ED with acute onset persistent urinary frequency and urgency and suprapubic pressure for the last 1 week. Patient states that he has previously experiencing the symptoms in the past and used to take Flomax which helped him void urine normally. Patient states that this latest episode has worsened in the last 2 days such that he can hardly sit down without having urinary frequency and urgency. Patient denies dysuria, t esticular pain, hematuria, abdominal pain, nausea, vomiting, fever, chills, traumatic injury, low back pain or diarrhea. MD Complaint: other (Urinary frequency and urgency) -: Sudden, week(s) (1) Location: penis, abdomen (Suprapubic pressure) Radiation: none Severity: moderate Severity scale (0 -10): 4 Quality: aching, dull Consistency: intermittent Improves with: none Worsens with: urination denies other symptoms, other (Urinary frequency and urgency). denies: discharge, swelling, mass, rash, urinary retention, blood in urine, dysuria, fever, nausea/vomiting, incontinence - Related Data Sexually active: Yes Home Medications Medication Instructions Recorded Confirmed Last Taken Aspirin 81 mg PO DAILY 01/07/17 01/07/17 Unknown Vistaril mg PO DAILY 01/07/17 Unknown Previous Rx's Medication Instructions Recorded Last Taken Type ZyPREXA 5 mg PO BID #60 01/09/17 Unknown Rx traZODone [Desyrel] 50 mg PO HS #30 tablet 01/09/17 Unknown Rx Doxycycline Hyclate [Doxycycline 100 mg PO Q12HR 7 Days #14 tab 06/13/18 Unknown Rx Hyclate TAB] Cyclobenzaprine [Flexeril] 10 mg PO TID PRN #30 tablet 07/29/18 Unknown Rx Naproxen 500 mg PO BID PRN #30 tablet 07/29/18 Unknown Rx Tamsulosin [Flomax] 0.4 mg PO QDAY #30 cap 07/04/20 Unknown Rx Allergies Allergy/AdvReac Type Severity Reaction Status Date / Time Penicillins Allergy Hives Verified 11/16/18 01:51 ED Review of Systems ROS: Stated complaint: ABDOMINAL PRESSURE/TESTICULAR PRESSURE Other details as noted in HPI Constitutional: denies: chills, fever Eyes: denies: eye pain, eye discharge, vision change ENT: denies: ear pain, throat pain Respiratory: denies: cough, shortness of breath, wheezing Cardiovascular: denies: chest pain, palpitations Endocrine: no symptoms reported Gastrointestinal: denies: abdominal pain, nausea, diarrhea Genitourinary: urgency, frequency, other (Suprapubic pressure). denies: dysuria Musculoskeletal: denies: back pain, joint swelling, arthralgia Skin: denies: rash, lesions Neurological: denies: headache, weakness, paresthesias Psychiatric: denies: anxiety, depression Hematological/Lymphatic: denies: easy bleeding, easy bruising ED Past Medical Hx - Past Medical History Previous Medical History?: Yes Hx Hypertension: Yes Hx Psychiatric Treatment: Yes (Schizophrenia, Homicidal Ideation, Suicical Ideatioins) Additional medical history: Kidney DZ, prostate, shouder injury - Surgical History Past Surgical History?: Yes Additional Surgical History: finger - Social History Smoking Status: Current Every Day Smoker - Medications Home Medications: Home Medications Medication Instructions Recorded Confirmed Last Taken Type Aspirin 81 mg PO DAILY 01/07/17 01/07/17 Unknown History Vistaril mg PO DAILY 01/07/17 Unknown History ZyPREXA 5 mg PO BID #60 01/09/17 Unknown Rx traZODone [Desyrel] 50 mg PO HS #30 tablet 01/09/17 Unknown Rx Doxycycline Hyclate [Doxycycline 100 mg PO Q12HR 7 Days #14 tab 06/13/18 Unknown Rx Hyclate TAB] Cyclobenzaprine [Flexeril] 10 mg PO TID PRN #30 tablet 07/29/18 Unknown Rx Naproxen 500 mg PO BID PRN #30 tablet 07/29/18 Unknown Rx Tamsulosin [Flomax] 0.4 mg PO QDAY #30 cap 07/04/20 Unknown Rx ED Physical Exam - General Limitations: No Limitations General appearance: alert, in no apparent distress - Head Head exam: Present: atraumatic, normocephalic, normal inspection - Eye Eye exam: Present: normal appearance, PERRL Pupils: Present: normal accommodation - ENT ENT exam: Present: normal exam, normal orophraynx, mucous membranes moist, TM's normal bilaterally, normal external ear exam - Neck Neck exam: Present: normal inspection, full ROM - Respiratory Respiratory exam: Present: normal lung sounds bilaterally. Absent: respiratory distress, wheezes, rales, stridor, chest wall tenderness, accessory muscle use, decreased breath sounds, prolonged expiratory - Cardiovascular Cardiovascular Exam: Present: regular rate, normal rhythm, normal heart sounds. Absent: systolic murmur, diastolic murmur, rubs, gallop - GI/Abdominal GI/Abdominal exam: Present: soft, normal bowel sounds. Absent: tenderness, guarding, rebound, hyperactive bowel sounds, hypoactive bowel sounds, organomegaly - Extremities Exam Extremities exam: Present: normal inspection, full ROM, normal capillary refill - Back Exam Back exam: Present: normal inspection, full ROM. Absent: tenderness, CVA tenderness (R), CVA tenderness (L), muscle spasm, paraspinal tenderness - Neurological Exam Neurological exam: Present: alert, oriented X3, CN II-XII intact, normal gait, reflexes normal - Psychiatric Psychiatric exam: Present: normal affect, normal mood - Skin Skin exam: Present: warm, dry, intact, normal color. Absent: rash ED Medical Decision Making - Lab Data Result diagrams: 07/04/20 01:29 07/04/20 01:29 - Medical Decision Making This is a 44-year-old -[place] male with a history of schizophrenia, anxiety and depression who presents to the ED with acute onset persistent urinary frequency and urgency and suprapubic pressure for the last 1 week. Patient states that he has previously experiencing the symptoms in the past and used to take Flomax which helped him void urine normally. Patient states that this latest episode has worsened in the last 2 days such that he can hardly sit down without having urinary frequency and urgency. In the ED, patient is alert and oriented x3 and is not in any distress. Urinalysis unremarkable. Other lab test results were reviewed and are all nonactionable. Patient was discharged home on Flomax and due to suspected bladder spasms. Patient was advised to follow-up with the urologist Dr. Navarrete for further evaluation. Patient is advised also follow-up with his primary care physician in 7 to 10 days for reevaluation or return to the ED immediately if symptoms get worse. - Differential Diagnosis Bladder spasm; UTI; STD; kidney stone; Critical care attestation.: If time is entered above; I have spent that time in minutes in the direct care of this critically ill patient, excluding procedure time. ED Disposition Clinical Impression: Bladder spasms, Urinary frequency Disposition: TO HOME OR SELFCARE Is pt being admited?: No Does the pt Need Aspirin: No Condition: Stable Instructions: Urinary Frequency, Adult, Overactive Bladder, Adult Additional Instructions: All lab test results were reviewed and are all nonactionable. Take medication with food, drink plenty of fluids and follow-up with your primary care physician in 5 to 7 days for reevaluation. Return to the ED immediately if symptoms get worse. Consider following up with the urologist Dr. Navarrete for further evaluation. Return to the ED immediately if symptoms get worse. Prescriptions: Tamsulosin [Flomax] 0.4 mg PO QDAY #30 cap Referrals: [facility] [Provider Group] - 3-5 Days ABRAM PRATT MD [Staff Physician] - 3-5 Days Time of Disposition: 03:07 Print Language: IRISH
== END 2020-07-04 04:04 | disposition home or self-care (01) ==
LOC: ED 23:57
DX: N32.89 Other specified disorders of bladder (principal); R35.0 Frequency of micturition; I10 Essential (primary) hypertension; F20.9 Schizophrenia, unspecified; F17.200 Nicotine dependence, unspecified, uncomplicated; Z98.890 Other specified postprocedural states; Z79.899 Other long term (current) drug therapy; Z88.0 Allergy status to penicillin
CPT/HCPCS: 36415; 80053; 81001; 85025